=== PATIENT | male | born 1960 | race Caucasian/White ===

== ENCOUNTER 2017-04-28 13:34 | Emergency (ER) | payer SELFPAY ==
[~2017-04-28] VITALS: Ht 172.7 cm; Wt 96.0 kg
[2017-04-28 13:35] VITALS: TEMP 36.9
[2017-04-28] MEDS ORDERED: SODIUM CHLORIDE 0.9% 1000ML 1,000 ML IV STA (14:30)
[2017-04-28] MEDS ORDERED: SODIUM CHLORIDE 0.9% 1000ML 1,000 ML IV SCH (14:30)
--- NOTE | 2017-04-28 14:31 | EMERGENCY ROOM VISIT NOTE ---
History Report prepared by Shanice: James Cuello Under the Supervision of: Dr. Shawn Sanders M.D. First contact with patient: 14:16 Chief Complaint: WEAKNESS Stated Complaint: Weakness, Trouble walking Nursing Triage Summary: Patient to ED via BLS reports he has been weak since Tuesday when he suddenly couldn't walk, was seen then at [facility] and left because they couldn't find anything wrong. Was seen again at [facility] yesterday. Patient is a truck driver supervisor, hx of DM and smoker. BP 200/120, BS 354 by EMS. History of Present Illness The patient is a 56 year old male who presents to the Emergency Room with complaints of sudden onset weakness that occurred on Tuesday three days ago. The patient states that he is a truck driver supervisor and was stopping to get gas on Tuesday when he experienced the weakness. He got out of the truck and dropped to the ground under his own weight. He was not able to walk secondary to the weakness. He was able to pull himself back up into his truck and go to sleep in his cabin. The patient told his what had happen and she called 911 to go get him. The EMS staff to him to [facility] where he had a CT/MRI of the head at [place] which diagnosed a stroke of unknown age. They did not do anything to help him so he left AMA. He then went to [place] yesterday and felt like he was treated unwell so he left there as well. At [place] he was placed on new prescriptions of Lipitor, Aspirin, and Florastor. He states that he has not taken any medications today. He stills very unsteady on his feet, and he believes he feels weaker on one side than the other. He denies any other chest pain or shortness of breath, but he does state that he feels "feverish on one side of his body." Nothing seems to improve his weakness. Source of History: patient Onset: Three days ago Quality: other (Weakness) Timing: other (Sudden Onset) Modifying Factors (Relieving): other (N/A) Associated Symptoms: No chest pain, No SOB Review of Systems See HPI for pertinent positives & negatives. A total of 10 systems reviewed and were otherwise negative. Past Medical & Surgical Hx of Hypertension Social History Smoking Status: Current Every Day Smoker Drug Use: none Marital Status: Housing Status: lives with family Occupation Status: employed Current/Historical Medications Scheduled Amlodipine (Norvasc), 10 MG PO DAILY Aspirin (Aspirin Ec), 81 MG PO DAILY Atorvastatin (Lipitor), 40 MG PO DAILY Atorvastatin (Lipitor), 10 MG PO HS Fenofibrate (Tricor ), 134 MG PO DAILY Glipizide (Glipizide Er), 5 MG PO DAILY Lisinopril/Hctz (Zestoretic 20MG/25MG), 1 TAB PO DAILY Metformin Hcl (Glucophage), 1,000 MG PO BID Metoprolol Succ (Toprol Xl) (Toprol-Xl), 50 MG PO DAILY Omeprazole (Prilosec), 20 MG PO DAILY Saccharomyces Boulardii (Florastor), 250 MG PO BID Scheduled PRN Ibuprofen (Advil), 200 MG PO DAILY PRN for Pain Allergies Coded Allergies: No Known Allergies (Unverified , 04/28/17) Physical Exam Vital Signs Date Time Temp Pulse Resp B/P (MAP) Pulse Ox O2 Delivery O2 Flow Rate FiO2 04/28/17 18:30 82 20 162/98 98 04/28/17 17:15 72 20 166/108 97 Room Air 04/28/17 15:01 80 16 171/108 04/28/17 15:00 96 Room Air 04/28/17 13:40 86 04/28/17 13:35 36.9 86 16 199/123 96 Room Air Physical Exam GENERAL: Awake, alert, well-appearing, in no acute distress HENT: Normocephalic, atraumatic. Oropharynx unremarkable. EYES: Normal conjunctiva. Sclera non-icteric. NECK: Supple. No nuchal rigidity. FROM. No JVD. RESPIRATORY: Clear to auscultation. CARDIAC: Regular rate, normal rhythm. Extremities warm and well perfused. Pulses equal. ABDOMEN: Soft, non-distended. No tenderness to palpation. No rebound or guarding. No masses. RECTAL: Deferred. MUSCULOSKELETAL: Chest examination reveals no tenderness. The back is symmetrical on inspection without obvious abnormality. There is no CVA tenderness to palpation. No joint edema. LOWER EXTREMITIES: Calves are equal size bilaterally and non-tender. No edema. No discoloration. NEURO: Normal sensorium. No sensory or motor deficits noted. SKIN: No rash or jaundice noted. Medical Decision & Procedures ER Provider Diagnostic Interpretation: CT of the brain from [facility] shows; CT scan of the brain shows a chronic lacunar infarct, making a perhaps more likely this his current symptoms ere representing of an ischemic event. IMPRESSION: Acute ataxia, chronic lacunar infarct, Ambulatory dysfunction. MRI of the brain from [place] shows: IMPRESSION: 1. No acute infraction, mass, or hemorrhage. 2. There is some white matter lesion in the brain which are nonspecific. Correlation with history suggested. Demyelinating process could be present. HEAD WITHOUT CONTRAST (CT) CLINICAL HISTORY: 56 years-old Male with Stroke. Acute strokelike symptoms TECHNIQUE: Multiple axial CT images of the head were obtained without contrast. A dose lowering technique was utilized adhering to the principles of ALARA. CT DOSE: 537.48 mGy.cm COMPARISON: None. FINDINGS: No acute intracranial hemorrhage, midline shift, intracranial mass, hydrocephalus, territorial ischemia or abnormal extra-axial collection. Ill-defined areas of low-attenuation within the periventricular white matter suggest mild chronic microvascular ischemic changes. More focal areas of low-attenuation within the left agarwal radiata, image 14 series 2 is also noted. The calvarium is intact. The paranasal sinuses, mastoid air cells, and middle ear cavities are clear. IMPRESSION: 1. No acute intracranial hemorrhage, midline shift or territorial infarct. 2. Ill-defined areas of low-attenuation within the left frontal lobe agarwal radiata suggest areas of remote insult. The above report was generated using voice recognition software. It may contain grammatical, syntax or spelling errors. Electronically signed by: Kraig Peña M.D. 04/28/2017 3:58 PM Dictated Date/Time: 04/28/2017 3:52 PM CHEST ONE VIEW PORTABLE CLINICAL HISTORY: Stroke mental status change COMPARISON STUDY: No previous studies for comparison. FINDINGS: The bones soft tissues and hemidiaphragms are normal. The cardiomediastinal silhouette is normal. The lungs are clear. The pulmonary vasculature is normal. IMPRESSION: Negative chest. The above report was generated using voice recognition software. It may contain grammatical, syntax or spelling errors. Electronically signed by: Abraham Rain M.D. 04/28/2017 2:45 PM Dictated Date/Time: 04/28/2017 2:43 PM ULTRASOUND BILATERAL LOWER EXTREMITY VENOUS CLINICAL HISTORY: Stroke-like symptoms. Clinical concern for deep venous thrombosis. COMPARISON STUDY: No priors. TECHNIQUE: Real-time, grayscale, and color Doppler sonography of the deep veins of the right and left lower extremity was performed from the inguinal crease to the calf. Compression and augmentation were utilized. FINDINGS: There is no sonographic evidence of deep venous thrombosis identified in the right or left lower extremity. The common femoral, superficial femoral, and popliteal veins are patent and normally compressible bilaterally. The greater saphenous vein and the profunda femoris vein at the junction with the common femoral vein are clear in both legs. The visualized calf veins are patent bilaterally. IMPRESSION: There is no sonographic evidence of deep venous thrombosis identified in the right or left lower extremity. Electronically signed by: Paco Marcus M.D. 04/28/2017 4:39 PM Dictated Date/Time: 04/28/2017 4:38 PM ULTRASOUND OF THE CAROTID ARTERIES CLINICAL HISTORY: Generalized weakness. COMPARISON STUDY: No priors. TECHNIQUE: Real-time, grayscale, and color Doppler sonography of the carotid arteries is performed. Images are reviewed in the transverse and longitudinal planes. FINDINGS: Blood pressures were not assessed due to IV access sites. The carotid arteries are patent bilaterally and demonstrate antegrade flow. There is minimal atherosclerotic plaque identified. Normal doppler arterial waveforms are seen throughout. Velocity measurements are listed below. Common carotid peak systolic velocity (cm/sec): RIGHT: 67 LEFT: 83 ICA proximal peak systolic velocity (cm/sec): RIGHT: 40 LEFT: 36 ICA mid peak systolic velocity (cm/sec): RIGHT: 39 LEFT: 40 ICA distal peak systolic velocity (cm/sec): RIGHT: 58 LEFT: 37 ICA/CC peak systolic ratio: RIGHT: 0.9 LEFT: 0.5 Antegrade flow was shown in the vertebral arteries. The external carotid arteries are patent. IMPRESSION: 1. There is no sonographic evidence of hemodynamically significant stenosis in the right or left carotid arterial system. 2. Antegrade flow is shown in the vertebral arteries. Electronically signed by: Paco Marcus M.D. 04/28/2017 4:42 PM Dictated Date/Time: 04/28/2017 4:40 PM Laboratory Results 04/28/17 15:00 Red Blood Count 4.49, Mean Corpuscular Volume 89.1, Mean Corpuscular Hemoglobin 31.6, Mean Corpuscular Hemoglobin Concent 35.5, Mean Platelet Volume 9.9, Neutrophils (%) (Auto) 59.6, Lymphocytes (%) (Auto) 28.9, Monocytes (%) (Auto) 7.3, Eosinophils (%) (Auto) 3.1, Basophils (%) (Auto) 0.9, Neutrophils # (Auto) 3.25, Lymphocytes # (Auto) 1.58, Monocytes # (Auto) 0.40, Eosinophils # (Auto) 0.17, Basophils # (Auto) 0.05 04/28/17 15:00 Test 04/28/17 15:00 04/28/17 15:06 04/28/17 17:20 White Blood Count 5.46 K/uL (4.8-10.8) Red Blood Count 4.49 M/uL (4.7-6.1) Hemoglobin 14.2 g/dL (14.0-18.0) Hematocrit 40.0 % (42-52) Mean Corpuscular Volume 89.1 fL (80-100) Mean Corpuscular Hemoglobin 31.6 pg (25-34) Mean Corpuscular Hemoglobin Concent 35.5 g/dl (32-36) Platelet Count 245 K/uL (130-400) Mean Platelet Volume 9.9 fL (7.4-10.4) Neutrophils (%) (Auto) 59.6 % Lymphocytes (%) (Auto) 28.9 % Monocytes (%) (Auto) 7.3 % Eosinophils (%) (Auto) 3.1 % Basophils (%) (Auto) 0.9 % Neutrophils # (Auto) 3.25 K/uL (1.4-6.5) Lymphocytes # (Auto) 1.58 K/uL (1.2-3.4) Monocytes # (Auto) 0.40 K/uL (0.11-0.59) Eosinophils # (Auto) 0.17 K/uL (0-0.5) Basophils # (Auto) 0.05 K/uL (0-0.2) RDW Standard Deviation 43.5 fL (36.4-46.3) RDW Coefficient of Variation 13.4 % (11.5-14.5) Immature Granulocyte % (Auto) 0.2 % Immature Granulocyte # (Auto) 0.01 K/uL (0.00-0.02) Prothrombin Time 9.8 SECONDS (9.0-12.0) Prothromb Time International Ratio 0.9 (0.9-1.1) Activated Partial Thromboplast Time 25.4 SECONDS (21.0-31.0) Partial Thromboplastin Ratio 1.0 Anion Gap 7.0 mmol/L (3-11) Est Creatinine Clear Calc Drug Dose 87.8 ml/min Estimated GFR () 89.7 Estimated GFR (Non- 77.4 BUN/Creatinine Ratio 9.5 (10-20) Calcium Level 9.2 mg/dl (8.5-10.1) Magnesium Level 2.1 mg/dl (1.8-2.4) Total Creatine Kinase 60 U/L (39-308) Creatine Kinase MB < 0.5 ng/ml (0.5-3.6) Creatine Kinase MB Ratio (0-3.0) Troponin I < 0.015 ng/ml (0-0.045) Beta-Hydroxybutyric Acid mg/dL (0.2-2.81) Chemistry Specimen Hemolysis Lyme Disease IgG Antibody NEG (NEG) Lyme Disease IgM Antibody NEG (NEG) Bedside Prothrombin Time INR 1.0 (0.9-1.1) Urine Color YELLOW Urine Appearance CLEAR (CLEAR) Urine pH 7.5 (4.5-7.5) Urine Specific Norco 1.034 (1.000-1.030) Urine Protein NEG (NEG) Urine Glucose (UA) 3+ (NEG) Urine Ketones NEG (NEG) Urine Occult Blood NEG (NEG) Urine Nitrite NEG (NEG) Urine Bilirubin NEG (NEG) Urine Urobilinogen NEG (NEG) Urine Leukocyte Esterase NEG (NEG) Labs reviewed by ED physician. Medications Administered Medications (Trade) Dose Ordered Sig/Emerald Route Start Time Stop Time Status Last Admin Dose Admin Sodium Chloride 1,000 ml @ 50 mls/hr Q20H IV 04/28/17 14:30 04/28/17 18:50 DC 04/28/17 15:20 50 MLS/HR Sodium Chloride 1,000 ml @ 999 mls/hr Q1H1M STAT IV 04/28/17 14:30 04/28/17 15:30 DC 04/28/17 15:00 999 MLS/HR Aspirin (Aspirin Chew) 324 mg NOW STAT PO 04/28/17 15:23 04/28/17 15:24 DC 04/28/17 15:29 324 MG Fenofibrate (Tricor Tab) 145 mg NOW STAT PO 04/28/17 15:23 04/28/17 15:29 DC 04/28/17 17:17 145 MG Metoprolol Succinate (Toprol Xl Tab) 50 mg NOW STAT PO 04/28/17 15:23 04/28/17 15:29 DC 04/28/17 17:16 50 MG Amlodipine Besylate (Norvasc Tab) 10 mg NOW STAT PO 04/28/17 15:23 04/28/17 15:29 DC 04/28/17 17:16 10 MG HCTZ/Lisinopril (Prinzide 20-25MG Tab) 1 tab NOW STAT PO 04/28/17 15:23 04/28/17 15:29 DC 04/28/17 17:17 1 TAB Famotidine (Pepcid Tab) 20 mg NOW STAT PO 04/28/17 15:23 04/28/17 15:29 DC 04/28/17 17:16 20 MG Atorvastatin Calcium (Lipitor Tab) 40 mg NOW STAT PO 04/28/17 15:23 04/28/17 15:29 DC 04/28/17 17:17 40 MG Glipizide (Glucotrol Tab) 5 mg NOW STAT PO 04/28/17 15:23 04/28/17 15:29 DC 04/28/17 17:16 5 MG Metformin HCl (Glucophage Extended Rel Tab) 1,000 mg NOW STAT PO 04/28/17 15:23 04/28/17 15:29 DC 04/28/17 17:17 1,000 MG ECG Per My Interpretation Rate (beats per minute): 82 Rhythm: normal sinus Findings: other (No PVCs, NO KAITLIN/STD) ED Course 1418: Past medical records reviewed. The patient was evaluated in room B12B. A complete history and physical examination was performed. 1430: Ordered Sodium Chloride 1000 mL @ 999 mL/hr IV, Sodium Chloride 1000 mL @ 50 mL/hr IV. 1520: I evaluated the findings from the patient's visit in [place] at this time. See Diagnostic section for further findings. 1523: Ordered Metformin HCl 1000 mg pO, Glipizide 5 mg PO, Lipitor 40 mg PO, Famotidine 20 mg PO, Lisinopril 20 mg PO, Lisinopril 1 tab PO, Fenofibrate 145 mg PO, Aspirin 324 mg PO. 1528: Review of the [place] documents show that they wanted the patient to see a neurologist and follow-up with physical therapy before he left AMA. 1805: Ordered Nicotine patch TD. 1820: Upon reexamination the patient is resting in bed. I discussed results and treatment plan with the patient. He verbalizes agreement and understanding. The patient is ready for discharge. Medical Decision Differential diagnosis: Etiologies such as metabolic, infection, hypo/hyperglycemia, electrolyte abnormalities, cardiac sources, intracerebral event, toxicologic, neurologic, as well as others were entertained. This is a 56-year-old male who presents to the emergency department over complaints of weakness. The patient has been at 2 hospitals in the past 48 hours over the weakness. He signed out AGAINST MEDICAL ADVICE from [facility] before he could see a neurologist or physical therapy. I will also note that the patient did not take any of his medications today. Because of this I did discuss the case with the patient about the importance of taking his medications. He was given his blood pressure as well as a sugar medication here in the emergency department. CAT scan and MRI that were obtained [facility] were obtained and reviewed by me. In the emergency department the patient was given aspirin here. I had a lengthy discussion with the patient and his discussing his case. I feel he needs to give up cigarette smoking and to get his blood pressure under control. For this reason he was given a nicotine patch. I offered admission to this patient however he declined. I stressed the fact that the patient needs follow-up with his extension specialist. Patient was sent for ultrasounds of his carotids as well as his lower extremities to rule out stenosis as well as DVTs. Patient and are in agreement with the treatment plan. Medication Reconcilliation Current Medication List: was personally reviewed by me Blood Pressure Screening Patient's blood pressure: Elevated blood pressure Blood pressure disposition: Referred to PCP Impression Primary Impression: Weakness Additional Impressions: Hypertension Hyperglycemia Scribe Attestation The scribe's documentation has been prepared under my direction and personally reviewed by me in its entirety. I confirm that the note above accurately reflects all work, treatment, procedures, and medical decision making performed by me. Departure Information Dispostion Home / Self-Care Forms HOME CARE DOCUMENTATION FORM, IMPORTANT VISIT INFORMATION Patient Instructions [facility] Additional Instructions Follow up with Dr Scanlon's office Keep appointments with Neurology Take Medications as prescribed You have been examined and treated today on an emergency basis only. This is not a substitute for, or an effort to provide, complete comprehensive medical care. It is impossible to recognize and treat all injuries or illnesses in a single emergency department visit. It is therefore important that you follow up closely with Dr Scanlon. Call as soon as possible for an appointment. Thank you for your time and consideration. I look forward to speaking with you again soon. Please don't hesitate to call us if you have any questions. Problem Qualifiers Additional Impressions: Hypertension Hypertension type: unspecified Qualified Codes: I10 - Essential (primary) hypertension
--- NOTE | 2017-04-28 14:46 | DIAGNOSTIC IMAGING REPORT ---
CHEST ONE VIEW PORTABLE CLINICAL HISTORY: Stroke mental status change COMPARISON STUDY: No previous studies for comparison. FINDINGS: The bones soft tissues and hemidiaphragms are normal. The cardiomediastinal silhouette is normal. The lungs are clear. The pulmonary vasculature is normal. IMPRESSION: Negative chest. The above report was generated using voice recognition software. It may contain grammatical, syntax or spelling errors. Electronically signed by: Abraham Rain M.D. 04/28/2017 2:45 PM Dictated Date/Time: 04/28/2017 2:43 PM
[2017-04-28 15:00] VITALS: O2SAT 96
[2017-04-28] MEDS ORDERED: IBUP-1050 PO (15:07)
[2017-04-28] MEDS ORDERED: ATOR-24 PO (15:07)
[2017-04-28] MEDS ORDERED: ASPI81TA28 PO (15:07)
[2017-04-28] MEDS ORDERED: LISI-788 PO (15:07)
[2017-04-28] MEDS ORDERED: AMLO-114 PO (15:07)
[2017-04-28] MEDS ORDERED: METF-384 PO (15:07)
[2017-04-28] MEDS ORDERED: PRLSR20 PO (15:07)
[2017-04-28] MEDS ORDERED: FENO134C2 PO (15:07)
[2017-04-28] MEDS ORDERED: METO50TA8 PO (15:07)
[2017-04-28] MEDS ORDERED: GLIP-197 PO (15:07)
[2017-04-28] MEDS ORDERED: ATOR10TA82 PO (15:08)
[2017-04-28] MEDS ORDERED: SACC250C PO (15:10)
[2017-04-28 15:17] LABS: BASO % 0.9 %; BASO ABS # 0.05 K/uL (0-0.2); EOS % 3.1 %; EOS ABS # 0.17 K/uL (0-0.5); HEMOGLOBIN 14.2 g/dL (14.0-18.0); IG# 0.01 K/uL (0.00-0.02); LYMPH % 28.9 %; LYMPH ABS # 1.58 K/uL (1.2-3.4); MEAN CELL VOLUME 89.1 fL (80-100); MEAN CORPUSCULAR HEMOGLOBIN 31.6 pg (25-34); MEAN CORPUSCULAR HGB CONC 35.5 g/dl (32-36); MEAN PLATELET VOLUME 9.9 fL (7.4-10.4); MONO % 7.3 %; NEUT % 59.6 %; NEUT ABS # 3.25 K/uL (1.4-6.5); PLATELET COUNT 245 K/uL (130-400); RED CELL DISTRIBUTION WIDTH CV 13.4 % (11.5-14.5); RED CELL DISTRIBUTION WIDTH SD 43.5 fL (36.4-46.3); WHITE BLOOD COUNT 5.46 K/uL (4.8-10.8)
[2017-04-28 15:20] VITALS: Ht 172.7 cm; Wt 96.0 kg
[2017-04-28] MEDS ORDERED: ASPIRIN 81 MG CHEW PO STA (15:23)
[2017-04-28] MEDS ORDERED: ATORVASTATIN 40 MG TAB PO STA (15:23)
[2017-04-28] MEDS ORDERED: METFORMIN HCL 500 MG TABCR PO STA (15:23)
[2017-04-28] MEDS ORDERED: FENOFIBRATE 145 MG TAB PO STA (15:23)
[2017-04-28] MEDS ORDERED: FAMOTIDINE 20 MG TAB PO STA (15:23)
[2017-04-28] MEDS ORDERED: LISINOPRIL/HCTZ 20/25MG TAB PO STA (15:23)
[2017-04-28] MEDS ORDERED: METOPROLOL SUCC 50MG EXT REL TAB PO STA (15:23)
[2017-04-28] MEDS ORDERED: AMLODIPINE BESYLATE 5 MG TAB PO STA (15:23)
[2017-04-28 15:28] LABS: INR 0.9 (0.9-1.1); PTT PATIENT 25.4 SECONDS (21.0-31.0)
[2017-04-28 15:39] LABS: CKMB < 0.5 ng/ml (0.5-3.6)
[2017-04-28 15:43] LABS: BLOOD UREA NITROGEN 10 mg/dl (7-18); CALCIUM 9.2 mg/dl (8.5-10.1); CARBON DIOXIDE 26 mmol/L (21-32); CREATININE 1.08 mg/dl (0.60-1.40); GLUCOSE 330 mg/dl (70-99); POTASSIUM 3.5 mmol/L (3.5-5.1); SODIUM 136 mmol/L (136-145)
--- NOTE | 2017-04-28 15:59 | DIAGNOSTIC IMAGING REPORT ---
HEAD WITHOUT CONTRAST (CT) CLINICAL HISTORY: 56 years-old Male with Stroke. Acute strokelike symptoms TECHNIQUE: Multiple axial CT images of the head were obtained without contrast. A dose lowering technique was utilized adhering to the principles of ALARA. CT DOSE: 537.48 mGy.cm COMPARISON: None. FINDINGS: No acute intracranial hemorrhage, midline shift, intracranial mass, hydrocephalus, territorial ischemia or abnormal extra-axial collection. Ill-defined areas of low-attenuation within the periventricular white matter suggest mild chronic microvascular ischemic changes. More focal areas of low-attenuation within the left agarwal radiata, image 14 series 2 is also noted. The calvarium is intact. The paranasal sinuses, mastoid air cells, and middle ear cavities are clear. IMPRESSION: 1. No acute intracranial hemorrhage, midline shift or territorial infarct. 2. Ill-defined areas of low-attenuation within the left frontal lobe agarwal radiata suggest areas of remote insult. The above report was generated using voice recognition software. It may contain grammatical, syntax or spelling errors. Electronically signed by: Kraig Peña M.D. 04/28/2017 3:58 PM Dictated Date/Time: 04/28/2017 3:52 PM
--- NOTE | 2017-04-28 16:41 | DIAGNOSTIC IMAGING REPORT ---
ULTRASOUND BILATERAL LOWER EXTREMITY VENOUS CLINICAL HISTORY: Stroke-like symptoms. Clinical concern for deep venous thrombosis. COMPARISON STUDY: No priors. TECHNIQUE: Real-time, grayscale, and color Doppler sonography of the deep veins of the right and left lower extremity was performed from the inguinal crease to the calf. Compression and augmentation were utilized. FINDINGS: There is no sonographic evidence of deep venous thrombosis identified in the right or left lower extremity. The common femoral, superficial femoral, and popliteal veins are patent and normally compressible bilaterally. The greater saphenous vein and the profunda femoris vein at the junction with the common femoral vein are clear in both legs. The visualized calf veins are patent bilaterally. IMPRESSION: There is no sonographic evidence of deep venous thrombosis identified in the right or left lower extremity. Electronically signed by: Paco Marcus M.D. 04/28/2017 4:39 PM Dictated Date/Time: 04/28/2017 4:38 PM
--- NOTE | 2017-04-28 16:44 | DIAGNOSTIC IMAGING REPORT ---
ULTRASOUND OF THE CAROTID ARTERIES CLINICAL HISTORY: Generalized weakness. COMPARISON STUDY: No priors. TECHNIQUE: Real-time, grayscale, and color Doppler sonography of the carotid arteries is performed. Images are reviewed in the transverse and longitudinal planes. FINDINGS: Blood pressures were not assessed due to IV access sites. The carotid arteries are patent bilaterally and demonstrate antegrade flow. There is minimal atherosclerotic plaque identified. Normal doppler arterial waveforms are seen throughout. Velocity measurements are listed below. Common carotid peak systolic velocity (cm/sec): RIGHT: 67 LEFT: 83 ICA proximal peak systolic velocity (cm/sec): RIGHT: 40 LEFT: 36 ICA mid peak systolic velocity (cm/sec): RIGHT: 39 LEFT: 40 ICA distal peak systolic velocity (cm/sec): RIGHT: 58 LEFT: 37 ICA/CC peak systolic ratio: RIGHT: 0.9 LEFT: 0.5 Antegrade flow was shown in the vertebral arteries. The external carotid arteries are patent. IMPRESSION: 1. There is no sonographic evidence of hemodynamically significant stenosis in the right or left carotid arterial system. 2. Antegrade flow is shown in the vertebral arteries. Electronically signed by: Paco Marcus M.D. 04/28/2017 4:42 PM Dictated Date/Time: 04/28/2017 4:40 PM
[2017-04-28] MEDS ORDERED: NICOTINE 21 MG/24 HR TDSY TD STA (18:05)
[2017-04-28 18:30] VITALS: BP 162/98; PULSE 82; O2SAT 98
[2017-04-29 07:23] LABS: HEMOGLOBIN A1C 9.2 % (4.5-5.6)
== END 2017-04-28 18:33 | disposition home or self-care (01) ==
LOC: EDBD 13:34 → C.EDB 13:38
DX: R53.1 Weakness (principal); I10 Essential (primary) hypertension; E11.65 Type 2 diabetes mellitus with hyperglycemia; F17.210 Nicotine dependence, cigarettes, uncomplicated; Z79.82 Long term (current) use of aspirin; Z79.899 Other long term (current) drug therapy